=== PATIENT | male | born 1985 | race Caucasian/White ===

== ENCOUNTER 2018-12-12 13:02 | Emergency (ER) | payer MEDICAID ==
--- NOTE | 2018-12-12 13:55 | RAD ---
XR Wrist 3 Lt View STANDARD History: Pain Comparison: None. Findings: No acute fracture or malalignment. Mild medial soft tissue swelling of the hand. Small wris t joint effusion. Triangular Subtle early chondrocalcinosis of the foveal insertion triangular fibrocartilage. Impression: No acute fracture or malalignment.
[2018-12-12] MEDS ORDERED: Ketorolac Tromethamine 30 MG/ML VIAL ONE (13:58)
[2018-12-12] MEDS ORDERED: Acetaminophen 500 MG TAB ONE (13:58)
== END 2018-12-12 14:27 | disposition home or self-care (01) ==
LOC: ERS 13:02
DX: S63.502A Unspecified sprain of left wrist, initial encounter (principal); W19.XXXA Unspecified fall, initial encounter
CPT/HCPCS: 96372; J1885